=== PATIENT | male | born 1965 | race Caucasian/White ===

== ENCOUNTER 2017-05-21 18:43 | Emergency (ER) | payer MEDICAID ==
[~2017-05-21] VITALS: Ht 170.2 cm; Wt 85.0 kg
[2017-05-21] MEDS ORDERED: acetaminophen 325mg tablet PO ONE (19:15)
[2017-05-21] MEDS ORDERED: bacitracin 15gm ointment TP ONE (19:20)
[2017-05-21 20:37] VITALS: BP 121/72
== END 2017-05-21 20:39 ==
LOC: ER 18:44
DX: S06.0X0A Concussion without loss of consciousness, initial encounter (principal); S00.81XA Abrasion of other part of head, initial encounter; S00.83XA Contusion of other part of head, initial encounter; F17.200 Nicotine dependence, unspecified, uncomplicated; W18.39XA Other fall on same level, initial encounter; Y93.02 Activity, running; Y92.89 Other specified places as the place of occurrence of the external cause; Y99.8 Other external cause status
CPT/HCPCS: 70450; 70486; 99284

== ENCOUNTER 2018-07-16 09:17 | Emergency (ER) | payer MEDICARE, MEDICAID ==
[~2018-07-16] VITALS: Ht 180.3 cm; Wt 65.2 kg
[2018-07-16 09:52] VITALS: BP 141/88
--- NOTE | 2018-07-16 10:07 | NUR ---
patient is alert and oriented.noted talking to himself,able to redirect at this time and is cooperative.urine sample collected.
== END 2018-07-16 11:07 | disposition home or self-care (01) ==
LOC: ER 09:17
DX: M54.2 Cervicalgia (principal); F17.200 Nicotine dependence, unspecified, uncomplicated; F15.10 Other stimulant abuse, uncomplicated
CPT/HCPCS: 99281; 99283

== ENCOUNTER 2018-08-26 10:39 | Emergency (ER) | payer MEDICARE, MEDICAID ==
[~2018-08-26] VITALS: Ht 177.8 cm; Wt 63.5 kg
--- NOTE | 2018-08-26 10:40 | NUR ---
Pt brought directly back to overflow for triage by [facility].
[2018-08-26 11:09] VITALS: BP 145/87
[2018-08-26] MEDS ORDERED: LORazepam 1 MG tablet PO ONE ×2 (11:20→15:35)
--- NOTE | 2018-08-26 11:58 | NUR ---
Pt allowed blood draw, continues to refuse to give a urine sample, admits to marijuana use but denies alcohol and all other drug use. Administered Ativan 20 mg PO per order.
[2018-08-26] MEDS ORDERED: proparacaine 0.5% ophthalmic drops 15ml EACHEYE ONE (12:00)
[2018-08-26 12:10] LABS: BASOPHILS # (AUTO) 0.1 X10'3 (0-0.2); BASOPHILS % (AUTO) 0.8 % (0-1); EOSINOPHILS # (AUTO) 0.1 X10'3 (0-0.9); EOSINOPHILS % (AUTO) 1.1 % (0-6); HEMATOCRIT 45.3 % (42.0-52.0); HEMOGLOBIN 15.5 g/dl (14.0-17.9); LYMPHOCYTES # (AUTO) 1.3 X10'3 (1.1-4.8); LYMPHOCYTES % (AUTO) 13.1 % (21-51); MEAN CORPUSCULAR HEMOGLOBIN 33.9 PG (27.0-31.0); MEAN CORPUSCULAR HGB CONC 34.1 g/dL (33.0-36.5); MEAN CORPUSCULAR VOLUME 99.4 FL (78-98); MONOCYTES # (AUTO) 1.1 X10'3 (0-0.9); MONOCYTES % (AUTO) 10.7 % (2-12); NEUTROPHILS # (AUTO) 7.5 X10'3 (1.8-7.7); NEUTROPHILS % (AUTO) 74.3 % (42-75); PLATELET COUNT 272 X10'3 (140-440); RED BLOOD COUNT 4.56 X10'6 (4.70-6.10); WHITE BLOOD COUNT 10.1 X10'3 (4.5-11.0)
--- NOTE | 2018-08-26 12:13 | NUR ---
Mom here for a visit.
[2018-08-26 12:19] LABS: ALANINE AMINOTRANSFERASE 67 U/L (12-78); ALBUMIN 4.4 G/DL (3.4-5.0); ALBUMIN/GLOBULIN RATIO 1.3 (1.1-1.5); ALKALINE PHOSPHATASE 102 IU/L (46-116); ANION GAP 8 (8-16); ASPARTATE AMINO TRANSFERASE 89 U/L (10-37); BILIRUBIN,TOTAL 1.2 MG/DL (0.1-1.0); BLOOD UREA NITROGEN 36 MG/DL (7-18); CALCIUM 10.2 MG/DL (8.5-10.1); CHLORIDE 103 MMOL/L (99-107); CREATININE 1.06 MG/DL (0.60-1.10); GLUCOSE 96 MG/DL (70-104); POTASSIUM 3.8 MMOL/L (3.5-5.1); SODIUM 142 MMOL/L (135-145); TOTAL CARBON DIOXIDE 31.1 MMOL/L (24-32); TOTAL PROTEIN 7.9 G/DL (6.4-8.2); eGFR 73 ML/MIN
[2018-08-26 12:29] LABS: ETHANOL < 0.010 GM/DL (0.0-0.010)
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
--- NOTE | 2018-08-26 13:22 | NUR ---
Pt up to use the BR, still refusing to give a urine sample.
--- NOTE | 2018-08-26 13:27 | NUR ---
CONTACT INFO: Anna Wei [phone].
--- NOTE | 2018-08-26 13:40 | NUR ---
AFIA Hillman ordered proparacaine opth drops, let her know the drops are here, notified her of recent eye surgery and that mom is bringing his drops in. Eye wash station in place, she plans on doing an ultrasound of his eye.
--- NOTE | 2018-08-26 13:56 | NUR ---
Mom brought in eye drops/instructions. She did not want the pt to see that she brought them as he did not wish for her to.
[2018-08-26] MEDS ORDERED: PRED5DRO23 EACHEYE (14:06)
[2018-08-26] MEDS ORDERED: BRIM5DRO2 LEFTEYE (14:07)
[2018-08-26] MEDS ORDERED: HOMA5DRO10 EACHEYE (14:10)
--- NOTE | 2018-08-26 15:23 | NUR ---
Snellen test done per PA instructions, pt was unable to see the top line with either eye, unable to read the top line with both eyes, vision less thatn 20/200. PA notified. Plan is to transfer the pt to a hospital that has an opthamologist and a psychiatrist.
--- NOTE | 2018-08-26 15:24 | NUR ---
Per mom, pt hears voices, one voice is mean and the other voice is timid.
--- NOTE | 2018-08-26 16:26 | NUR ---
Pt is being transferred to [facility], Dr Avila is the accepting doctor. Called and gave nurse to nurse report to Chad ROSS.
--- NOTE | 2018-08-26 16:32 | NUR ---
Faxed face sheet to [facility] per their request.
--- NOTE | 2018-08-26 16:35 | NUR ---
Returned POM eye drops to mom.
[2018-08-26] MEDS ORDERED: prednisoLONE acetate 1% ophth susp 5ml EACHEYE SCH (17:00)
--- NOTE | 2018-08-26 17:22 | NUR ---
[facility] mom was here and aware. Pt wheeled out on a gurney.
--- NOTE | 2018-08-26 17:24 | NUR ---
Called [facility] to notify that pt is en route.
[2018-08-26] MEDS ORDERED: HOMATROPINE EACHEYE SCH (20:00)
[2018-08-26] MEDS ORDERED: brimonidine 0.2% 5 ML ophthalmic drops LEFTEYE SCH (20:00)
[2018-08-26] MEDS ORDERED: timolol 0.5% ophthalmic solution 5ml bottle LEFTEYE SCH (20:00)
[2018-08-27] MEDS ORDERED: brimonidine 0.2% 5 ML ophthalmic drops LEFTEYE SCH (10:00)
== END 2018-08-26 17:25 | disposition short-term general hospital (02) ==
LOC: ER 10:39
DX: S05.32XA Ocular laceration without prolapse or loss of intraocular tissue, left eye, initial encounter (principal); F29 Unspecified psychosis not due to a substance or known physiological condition; F15.90 Other stimulant use, unspecified, uncomplicated; Z79.899 Other long term (current) drug therapy; W22.8XXA Striking against or struck by other objects, initial encounter; Y93.89 Activity, other specified; Y92.89 Other specified places as the place of occurrence of the external cause; Y99.8 Other external cause status
CPT/HCPCS: 36415; 80053; 80320; 84443; 85025; 99291

== ENCOUNTER 2019-07-23 14:31 | Emergency (ER) | payer MEDICARE, MEDICAID ==
[~2019-07-23] VITALS: Ht 172.7 cm; Wt 69.3 kg
[~2019-07-23 14:31] MED LIST: BRIM5DRO2 LEFTEYE; HOMA5DRO10 EACHEYE; PRED5DRO23 LEFTEYE
--- NOTE | 2019-07-23 15:39 | NUR ---
RN asked why patient was here. Patient states he wants to see a regular doctor. Patient is disheveld, fowl smelling and disorganized. Patient flailing his arms and eating a snack as crumbs fall all over himself and the floor. extracorporeal technician walk up and RN explains that his blood is going to be drawn. Patient refuses. Patient denies SI/HI. Continue to monitor.
--- NOTE | 2019-07-23 16:00 | NUR ---
Patient ran out the door with Tal at bedside. Security and [employer] notified. Continue to monitor.
--- NOTE | 2019-07-23 16:17 | NUR ---
Patient was brought back to overflow from ER triage. Patient sat in his bed for a couple of minutes and was talking to the hale and the curtain. Patient is disheveld, fowl smelling and was showing signs of being under the influance of drugs or alcohol. Per PA, patient needs to be placed on a hold. Tal OREILLY placed a telephone call to DER[facility]. I completed the call based on the providers instruction. A description of the patient was provided and [employer] will be looking for him.
--- NOTE | 2019-07-23 16:33 | NUR ---
Patient lives with mom in [place]. Corazon [phone].
[2019-07-23] MEDS ORDERED: haloperidol lactate 5mg/ml inj IM ONE (16:35)
[2019-07-23] MEDS ORDERED: diphenhydrAMINE 50 mg/ml inj IM ONE ×2 (16:35→16:50)
[2019-07-23] MEDS ORDERED: LORazepam 2 mg/ml vial IM ONE (16:35)
--- NOTE | 2019-07-23 16:37 | NUR ---
Patient in his bed and appears to be responding to internal stimuli. Patient is refusing to give a urine sample but was encouraged to undress. Patient is now in green scrubs. Continue to monitor.
[2019-07-23 17:23] LABS: BASOPHILS # (AUTO) 0.1 X10'3 (0-0.2); BASOPHILS % (AUTO) 1.1 % (0-1); EOSINOPHILS # (AUTO) 0.1 X10'3 (0-0.9); EOSINOPHILS % (AUTO) 0.8 % (0-6); HEMATOCRIT 42.4 % (42.0-52.0); HEMOGLOBIN 14.6 g/dl (14.0-17.9); LYMPHOCYTES # (AUTO) 1.6 X10'3 (1.1-4.8); LYMPHOCYTES % (AUTO) 14.6 % (21-51); MEAN CORPUSCULAR HGB CONC 34.5 g/dL (33.0-36.5); MEAN CORPUSCULAR VOLUME 98.3 FL (78-98); MEAN PLATELET VOLUME 7.9 FL (7.4-10.4); MONOCYTES # (AUTO) 1.1 X10'3 (0-0.9); MONOCYTES % (AUTO) 9.6 % (2-12); NEUTROPHILS # (AUTO) 8.3 X10'3 (1.8-7.7); NEUTROPHILS % (AUTO) 73.9 % (42-75); PLATELET COUNT 263 X10'3 (140-440); RED BLOOD COUNT 4.31 X10'6 (4.70-6.10); RED CELL DISTRIBUTION WIDTH 13.3 % (11.5-14.5); WHITE BLOOD COUNT 11.2 X10'3 (4.5-11.0)
[2019-07-23 17:38] LABS: ALANINE AMINOTRANSFERASE 23 U/L (12-78); ALBUMIN 4.2 G/DL (3.4-5.0); ALBUMIN/GLOBULIN RATIO 1.3 (1.1-1.5); ALKALINE PHOSPHATASE 105 IU/L (46-116); ANION GAP 10 (8-16); ASPARTATE AMINO TRANSFERASE 37 U/L (10-37); BILIRUBIN,TOTAL 0.7 MG/DL (0.1-1.0); BLOOD UREA NITROGEN 42 MG/DL (7-18); BUN/CREATININE RATIO 39.3 (5.4-32.0); CALCIUM 9.2 MG/DL (8.5-10.1); CHLORIDE 107 MMOL/L (99-107); CREATININE 1.07 MG/DL (0.60-1.10); GLUCOSE 89 MG/DL (70-104); POTASSIUM 4.2 MMOL/L (3.5-5.1); SODIUM 142 MMOL/L (135-145); TOTAL CARBON DIOXIDE 25.2 MMOL/L (24-32); TOTAL PROTEIN 7.5 G/DL (6.4-8.2); eGFR 72 ML/MIN
[2019-07-23 17:47] LABS: ACETAMINOPHEN < 2.0 UG/ML (10-30); ETHANOL < 0.010 GM/DL (0.0-0.010); VALPROATE < 3.0 UG/ML (50-100)
[2019-07-23] MEDS ORDERED: BUPR75TA8 PO (17:51)
[2019-07-23] MEDS ORDERED: OLAN5TAB5 PO (17:51)
[2019-07-23] MEDS ORDERED: VIG0.5OS LEFTEYE (17:51)
[2019-07-23] MEDS ORDERED: DICL75TA28 PO (17:51)
--- NOTE | 2019-07-23 18:07 | NUR ---
Patient sleeping. Continue to monitor.
--- NOTE | 2019-07-23 18:30 | NUR ---
Patient is sleeping on his right. Patient was sedated earlier on the am shift.
--- NOTE | 2019-07-23 19:00 | NUR ---
Patient awakens, voids into urinal and immediately returns to sleep. Warm blankets provided.
--- NOTE | 2019-07-23 19:20 | NUR ---
Patient is sleeping on his right side, feet dangling over bed. Patient repositioned, he does not awaken.
[2019-07-23] MEDS: DICLOFENAC 75 MG PO SCH (20:00)
[2019-07-23] MEDS: olanzapine 10mg tablet PO SCH (21:00)
[2019-07-23] MEDS: prednisoLONE acetate 1% ophth susp 5ml LEFTEYE SCH (21:00)
[2019-07-23] MEDS: moxifloxacin 0.5% ophthalmic drops 3ml LEFTEYE SCH (21:00)
[2019-07-23 21:34] LABS: CLARITY,URINE CLEAR (Clear); COLOR,URINE YELLOW (Yellow); GLUCOSE, URINE NEGATIVE (Neg); KETONES,URINE 15 mg/dl (Neg); LEUKOCYTE ESTERASE ,URINE NEGATIVE (Neg); NITRITES, URINE NEGATIVE (Neg); OCCULT BLOOD,URINE SMALL (Neg); PH,URINE 5.5 (4.8-8.0); PROTEIN,URINE TRACE mg/dl (Neg); UROBILINOGEN,URINE 0.2 E.U/dL (0.2-1.0)
[2019-07-23 21:35] LABS: UA COLLECTION TYPE CLN CATCH MIDSTREAM
[2019-07-23 21:41] LABS: BACTERIA,URINE NONE SEEN /HPF (Neg); RBC,URINE 0-2 /HPF (0-2); SQUAMOUS EPITHELIAL CELL,UR FEW /LPF (FEW); WBC,URINE 0-4 /HPF (0-4)
[2019-07-23 21:48] LABS: URINE AMPHETAMINE SCREEN POSITIVE (Neg); URINE BARBITUATE SCREEN NEGATIVE (Neg); URINE BENZODIAZEPINES SCREEN NEGATIVE (Neg); URINE CANNABINOID SCREEN POSITIVE (Neg); URINE COCAINE SCREEN NEGATIVE (Neg); URINE METHADONE SCREEN NEGATIVE (Neg); URINE OPIATE SCREEN NEGATIVE (Neg); URINE PHENCYCLIDINE SCREEN NEGATIVE (Neg)
--- NOTE | 2019-07-23 23:35 | NUR ---
Patient sleeping, low fowlers in bed.
--- NOTE | 2019-07-24 01:00 | NUR ---
Patient sleeping on his right side.
--- NOTE | 2019-07-24 02:15 | NUR ---
Patient is supine in bed snoring. In view from nursing station.
--- NOTE | 2019-07-24 03:00 | NUR ---
Patient remains sleeping, he self positioned on his right side.
--- NOTE | 2019-07-24 05:00 | NUR ---
Patient sleeping low fowlers position.
--- NOTE | 2019-07-24 05:51 | NUR ---
Patient sleeping on his right side. Patient has slept nearly the whole shift following sedation on the day shift. Save for awakening and voiding at the bedsede once the patient has slept.
--- NOTE | 2019-07-24 06:30 | NUR ---
PT IS SLEEPING
--- NOTE | 2019-07-24 07:30 | NUR ---
PT IS SLEEPING
[2019-07-24] MEDS: prednisoLONE acetate 1% ophth susp 5ml LEFTEYE SCH ×3 (08:00→21:00)
[2019-07-24] MEDS: buPROPion 75mg tablet PO SCH (08:00)
[2019-07-24] MEDS: DICLOFENAC 75 MG PO SCH ×2 (08:00→20:00)
[2019-07-24] MEDS: moxifloxacin 0.5% ophthalmic drops 3ml LEFTEYE SCH ×4 (08:00→21:00)
--- NOTE | 2019-07-24 08:30 | NUR ---
PT IS SLEEPING
--- NOTE | 2019-07-24 09:11 | NUR ---
PACKET FAXED TO [facility]
--- NOTE | 2019-07-24 09:30 | NUR ---
PT WOKE UP AND ATE HIS BREAKFAST
--- NOTE | 2019-07-24 10:30 | NUR ---
PT IS SLEEPING
--- NOTE | 2019-07-24 11:27 | NUR ---
PT IS SLEEPING
--- NOTE | 2019-07-24 12:30 | NUR ---
pt was to sedated from meds last night to speak with [facility]
--- NOTE | 2019-07-24 13:30 | NUR ---
[facility] stated they were going to come back after the pt was done eating
--- NOTE | 2019-07-24 14:30 | NUR ---
pt is sleeping
--- NOTE | 2019-07-24 15:30 | NUR ---
pt is resting
--- NOTE | 2019-07-24 17:58 | NUR ---
PT RESTING IN ROOM
[2019-07-24] MEDS: olanzapine 10mg tablet PO SCH (20:58)
--- NOTE | 2019-07-24 23:28 | NUR ---
Pt has been asleep since start of shift. Woke up easily to take medication at HS. pleasant and cooperative. Denies SI one word or no answers to questions. Up to BR independantly. Called mom she agreed to bring pts home meds tomorrow.
--- NOTE | 2019-07-25 00:59 | NUR ---
Pt sleeping all shift. Woke up easily for HS Meds. Called Mom she agreed to bring pts home meds tomorrow.
[2019-07-25 05:42] VITALS: BP 97/71
--- NOTE | 2019-07-25 06:17 | NUR ---
pt resting quietly in bed.
--- NOTE | 2019-07-25 07:54 | NUR ---
pt resting quietly in bed.
--- NOTE | 2019-07-25 08:51 | NUR ---
Nehemiah with [facility] at bedside. Addendum: 07/25/19 at 0851 by ESVIN pt sittign up in bed quietly eating breakfast.
[2019-07-25] MEDS: prednisoLONE acetate 1% ophth susp 5ml LEFTEYE SCH (09:07)
[2019-07-25] MEDS: DICLOFENAC 75 MG PO SCH (09:07)
[2019-07-25] MEDS: moxifloxacin 0.5% ophthalmic drops 3ml LEFTEYE SCH (09:07)
[2019-07-25] MEDS: buPROPion 75mg tablet PO SCH (09:07)
--- NOTE | 2019-07-25 10:38 | NUR ---
pt calm and cooperative this AM, took Wellbutrin med, eye gtts not available for pt. reviewed discharge instructions with pt and he verbalized understanding. belongings returned to pt including a bag of tobacco. pt supposedly lives with his mother but stated he wanted to be discharged to [facility]. David provided for pt to [facility].
== END 2019-07-25 10:37 | disposition home or self-care (01) ==
LOC: ER 14:31
DX: F23 Brief psychotic disorder (principal); F99 Mental disorder, not otherwise specified; Z72.89 Other problems related to lifestyle; F15.90 Other stimulant use, unspecified, uncomplicated; Z56.0 Unemployment, unspecified; Z79.899 Other long term (current) drug therapy
CPT/HCPCS: 36415; 80053; 80164; 80178; 80305; 80320; 80329; 81001; 84443; 85025; 96372; 99285; J1200; J1630; J2060; 99283

== ENCOUNTER 2019-11-10 11:43 | Emergency (ER) | payer MEDICARE, MEDICAID ==
[~2019-11-10] VITALS: Ht 182.9 cm; Wt 67.0 kg
[~2019-11-10 11:43] MED LIST changes: -BRIM5DRO2 LEFTEYE; +BUPR75TA8 PO; +DICL75TA28 PO; -HOMA5DRO10 EACHEYE; +OLAN5TAB5 PO; +VIG0.5OS LEFTEYE
[2019-11-10] MEDS ORDERED: metoclopramide 5 mg/ml inj IV ONE (12:35)
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
[2019-11-10] MEDS ORDERED: naproxen 500mg tablet PO ONE (13:10)
[2019-11-10 13:44] VITALS: BP 125/72
[2019-11-10] MEDS ORDERED: LORazepam 1 MG tablet PO ONE (13:50)
== END 2019-11-10 14:15 | disposition home or self-care (01) ==
LOC: ER 11:43
DX: S00.33XA Contusion of nose, initial encounter (principal); F20.9 Schizophrenia, unspecified; F15.90 Other stimulant use, unspecified, uncomplicated; Z72.89 Other problems related to lifestyle; Z56.0 Unemployment, unspecified; Z79.899 Other long term (current) drug therapy; Y93.39 Activity, other involving climbing, rappelling and jumping off; Y93.89 Activity, other specified; Y92.89 Other specified places as the place of occurrence of the external cause; Y99.8 Other external cause status
CPT/HCPCS: 70160; 99284